=== PATIENT | male | born 1935 | race Caucasian/White ===

== ENCOUNTER 2016-07-27 12:17 | Observation (INO) | payer MEDICARE, BC ==
[~2016-07-27] VITALS: Ht 182.9 cm; Wt 101.6 kg
[2016-07-27 14:10] LABS: HEMOGLOBIN 14.9 gm/dl (14.0-17.5); RED BLOOD COUNT 4.86 M/UL (4.20-5.50); WHITE BLOOD COUNT 5.7 K/UL (4.5-11.0)
[2016-07-27] MEDS ORDERED: CARDURA8 MG PO (23:50)
[2016-07-27] MEDS ORDERED: SYNTHROID 25 M25 MCG PO (23:50)
[2016-07-27] MEDS ORDERED: FISH OIL 1,0001 EAC1 PO (23:51)
[2016-07-27] MEDS ORDERED: AMLODIPINE BESYL5 MG PO (23:51)
[2016-07-27] MEDS ORDERED: SIMVASTATIN20 MG PO (23:51)
[2016-07-27] MEDS ORDERED: ASPIRIN81 MG PO (23:51)
[2016-07-27] MEDS ORDERED: VITAMIN D3 PO (23:55)
[2016-07-29 10:56] LABS: HEMOGLOBIN 13.9 gm/dl (14.0-17.5); RED BLOOD COUNT 4.52 M/UL (4.20-5.50); WHITE BLOOD COUNT 5.1 K/UL (4.5-11.0)
[2016-07-29 11:16] LABS: BUN/CREATININE RATIO 10 (0-10)
[2016-07-29] MEDS ORDERED: PROTONIX40 MG PO (17:46)
[2016-07-29] MEDS ORDERED: IBUPROFEN400 MG PO (17:46)
== END 2016-07-29 18:19 | disposition home or self-care (01) ==
LOC: ER1 12:17 → ZEROF 22:16 → M/S 22:16
PROVIDERS: Emergency Medicine; Hospitalist; ADMIT Internal Medicine
DX: R55 Syncope and collapse (principal); R42 Dizziness and giddiness; E03.9 Hypothyroidism, unspecified; I10 Essential (primary) hypertension; E78.5 Hyperlipidemia, unspecified; M19.90 Unspecified osteoarthritis, unspecified site; M51.36 Other intervertebral disc degeneration, lumbar region; K80.20 Calculus of gallbladder without cholecystitis without obstruction; K21.9 Gastro-esophageal reflux disease without esophagitis; Z79.82 Long term (current) use of aspirin; Z79.899 Other long term (current) drug therapy
CPT/HCPCS: ECHO; 36415; 70450; 71010; 72125; 72131; 73502; 80048; 80053; 80061; 81001; 82550; 82553; 83690; 83874; 84443; 84484; 85025; 85027; 86140; 87086; 93005; 93306; 93880; 96360; 96361; 99285; G0378; J7030

== ENCOUNTER → 2020-03-08 | Outpatient (CLI) | payer MEDICARE, BC ==
[~2020-03-08] MED LIST: AMLODIPINE BESYL5 MG PO; ASPIRIN81 MG PO; BETAPACE 80MG T80 MG PO; CARDURA8 MG PO; ELIQUIS2.5 MG PO; FISH OIL 1,0001 EAC1 PO; FISH OIL 1,2001 EAC1 PO; IBUPROFEN400 MG PO; LEVAQUIN500 MG PO; LIPITOR TAB 2020 MG PO; LISINOPRIL10 MG PO; LISINOPRIL2.5 MG PO; PERCOCET 5-3251 EACH PO; PROTONIX40 MG PO; SIMVASTATIN20 MG PO; SYNTHROID 25 M25 MCG PO; VITAMIN D3 PO; VITAMIN D32000 UNIT PO; ZOFRAN 4 MG TAB4 MG GT
== END ==
LOC: KOH-I 11:08
DX: M25.551 Pain in right hip (principal); M25.552 Pain in left hip; M54.5 Low back pain; M47.816 Spondylosis without myelopathy or radiculopathy, lumbar region
CPT/HCPCS: 72110; 73522

== ENCOUNTER → 2020-04-19 | Outpatient (CLI) | payer MEDICARE, BC | LOC: HEART 5 15:15 | DX: R06.02 Shortness of breath (principal); E78.5 Hyperlipidemia, unspecified | CPT/HCPCS: 93306 ==

== ENCOUNTER 2021-05-06 11:44 | Emergency (ER) | payer MEDICARE, BC ==
[2021-05-06 12:24] LABS: HEMOGLOBIN 14.5 gm/dl (14.0-17.5); RED BLOOD COUNT 4.77 M/UL (4.20-5.50); WHITE BLOOD COUNT 10.1 K/UL (4.5-11.0)
[2021-05-06 13:17] LABS: BUN/CREATININE RATIO 12 (0-10)
[2021-05-06] MEDS ORDERED: LEVOFLOXACIN500 MG PO (15:59)
[2021-05-06] MEDS ORDERED: METRONIDAZOLE500 MG PO (15:59)
== END 2021-05-06 16:10 | disposition home or self-care (01) ==
LOC: ER1 11:44
PROVIDERS: Emergency Medicine
DX: K57.32 Diverticulitis of large intestine without perforation or abscess without bleeding (principal); E78.5 Hyperlipidemia, unspecified; I10 Essential (primary) hypertension
CPT/HCPCS: 80053; 81001; 83690; 85025; 99284; Q9967

== ENCOUNTER → 2021-11-13 | Outpatient (CLI) | payer MEDICARE, BC ==
[~2021-11-13] MED LIST changes: +LEVOFLOXACIN500 MG PO; +METRONIDAZOLE500 MG PO
== END ==
LOC: CT 13:24
DX: K86.2 Cyst of pancreas (principal); K80.20 Calculus of gallbladder without cholecystitis without obstruction
CPT/HCPCS: 36415; 74170; 82565; 84520; Q9965